=== PATIENT | female | born 1960 | race Caucasian/White ===

== ENCOUNTER 2019-05-14 09:31 | Day surgery (SDC) | payer OTHER ==
[2019-05-09 13:17] VITALS: BMI 24.7
[~2019-05-14 09:31] MED LIST: oxyCODONE HCL 10 MG SUSTAINED ACTING TABLET PO STA
[2019-05-14] MEDS ORDERED: GUM MASTIC/STORAX/MSAL/ALCOHOL 1 DRP DROPSBTL MC ONE (11:08)
[2019-05-14] MEDS ORDERED: LIDOCAINE 1%/EPI 1:100000 (20 ML MULTI DOSE VIAL) ONE (11:08)
[2019-05-14] MEDS ORDERED: THROMBIN (RECOMBINANT) 5,000 UNIT VIAL TP ONE (11:08)
[2019-05-14] MEDS ORDERED: DEXAMETHASONE SOD PHOSPHATE/PF 10 MG/ML SDV ONE (11:10)
[2019-05-14] MEDS ORDERED: MIDAZOLAM HCL 2 MG/2 ML SINGLE DOSE VIAL ONE ×2 (11:10→11:57)
[2019-05-14] MEDS ORDERED: BUPIVACAINE HCL/PF 2.5 MG/ML - 30 ML VIAL IJ ONE (11:10)
[2019-05-14] MEDS ORDERED: LIDOCAINE 1%/EPI 1:100000 (20 ML MULTI DOSE VIAL) INF ONE (12:06)
[2019-05-14] MEDS ORDERED: ceFAZolin SODIUM 1 GM VIAL ONE (12:13)
[2019-05-14] MEDS ORDERED: GELATIN SPONGE,ABSORBABLE 1 GM PACKET TP ONE (12:25)
[2019-05-14] MEDS ORDERED: THROMBIN (BOVINE) 5,000 UNIT VIAL TP ONE (12:25)
[2019-05-14] MEDS ORDERED: methylPREDNISolone ACET (DEPO) 40 MG/1 ML VIAL ONE (12:46)
[2019-05-14] MEDS ORDERED: methylPREDNISolone ACET (DEPO) 40 MG/1 ML VIAL IM ONE (12:47)
--- NOTE | 2019-05-14 13:19 | OP ---
Operative Note - Note: Operative Date: 05/14/19 Pre-Operative Diagnosis: Lumbar stenosis with LE radiculopathy Operation: L4/5 laminectomy (bilateral) Post-Operative Diagnosis: Same as Pre-op Surgeon: Hilario Horton Architectural Inspector: Song Locke Anesthesiologist/CIRCUITS ENGINEER: Angelic Martin Anesthesia: Spinal Estimated Blood Loss (mls): 10 Fluid Volume Replaced (mls): 1,200 Operative Report Dictated: Yes
[2019-05-14] MEDS ORDERED: oxyCODONE HCL 5 MG TABLET PO PRN (13:40)
[2019-05-14] MEDS ORDERED: ONDANSETRON 4 MG/2 ML VIAL IVPUSH PRN (13:40)
[2019-05-14] MEDS ORDERED: LACTATED RINGERS SOLUTION 1,000 ML IV SCH (13:45)
--- NOTE | 2019-05-14 15:08 | OP ---
DATE OF OPERATION: 05/14/2019 PREOPERATIVE DIAGNOSIS: Spinal stenosis, L4-5. POSTOPERATIVE DIAGNOSIS: Spinal stenosis, L4-5. PROCEDURE PERFORMED: Laminectomy, L4-5. SURGEON: Hilario Horton MD FREELANCE WRITER: ELTON Serrato ESTIMATED BLOOD LOSS: 50 mL. IV FLUIDS: Per Anesthesia. ANESTHESIA: Spinal/TLIP. COMPLICATIONS: There were none. DISPOSITION: Patient brought to the PACU in stable condition. INDICATION FOR SURGERY: The patient is a 58-year-old female who has been suffering from pain from her back down her leg. X-rays and MRI were completed, which noted she had spinal stenosis at L4-5. She had gone through an exhaustive course of treatment for this, which included medications, physical therapy as well as injections. Unfortunately, her pain continued to persist despite all this. At this point, risks, benefits, and alternatives were discussed and the patient consented to surgery. OPERATIVE NOTE: The patient was brought to the operating room by the anesthesia staff. After appropriate patient identification was performed, spinal anesthesia was given. A TLIP block was also given. The patient was able to position herself prone onto the OR table, with all areas of bony prominences well padded at this time. Two needles were placed into back to jade off the L4-5 level. X-ray was taken to confirm correct. The needle was removed and 10 mL of lidocaine with epinephrine was injected into her back at this time. Her back was prepped and draped in a sterile manner. A timeout was completed. An incision was made from the top of L4 down to the bottom of L5. Dissection was carried down to the fascia. The fascia was then split open at this time and appropriate retractors were then placed in. A spinal needle was placed onto the L4 lamina to jade off the L4-5 level. An x-ray was taken to confirm this was correct. The needle was removed and the interspinous ligament at L4-5 was removed. A portion of the L4-L5 spinous process was removed. Portions of the L4-5 lamina were removed. The flavum was identified, was removed. A complete decompression was performed such that by the end of the procedure, the L5 nerve root appeared to be well decompressed. All bleeding was well controlled at this time. Steroid was placed over the nerve root, FloSeal was placed over that. The fascia was closed with a number 1 Vicryl suture. The subcutaneous tissues were closed with 2-0 Vicryl suture. Skin was closed with 3-0 Monocryl suture. Dermabond was applied, Steri-Strips were applied, a sterile dressing was applied. The patient was placed supine on the OR bed, brought to the PACU in stable condition. Joseph GARCIA/[id number]
[2019-05-14 16:29] VITALS: BP 124/72; PULSE 70; TEMP 97.9
== END 2019-05-14 16:29 | disposition home or self-care (01) ==
LOC: FASU 09:31
PROVIDERS: ATTEND Orthopaedic Surgery Orthopaedic Surgery of the Spine
PROC: 01NB0ZZ Release Lumbar Nerve, Open Approach (ICD-10-PCS; principal; 2019-05-14 11:45)
DX: M48.061 Spinal stenosis, lumbar region without neurogenic claudication (principal)
CPT/HCPCS: 72100-TC-FY; 94760